=== PATIENT | male | born 2000 | race Hispanic/Latino ===

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

== ENCOUNTER 2023-02-22 13:16 | Outpatient (CLI) | payer BC | END 2023-02-22 13:17 | disposition home or self-care (01) | LOC: BICCT 13:16 | PROVIDERS: ATTEND Family Medicine Sports Medicine | DX: R10.12 Left upper quadrant pain (principal) | CPT/HCPCS: 74177 ==

== ENCOUNTER 2024-02-07 14:32 | Outpatient (CLI) | payer BC | END 2024-02-07 14:33 | disposition home or self-care (01) | LOC: BICRAD 14:32 | PROVIDERS: ATTEND Family Medicine Sports Medicine | DX: R05.9 Cough, unspecified (principal) | CPT/HCPCS: 71046 ==